=== PATIENT | female | born 1980 | race Caucasian/White ===

== ENCOUNTER 2017-05-11 15:59 | Emergency (ER) | payer MEDICAID ==
--- NOTE | 2017-05-11 17:13 | ED Physician Chart ---
Chief Complaint/HPI - Patient Information Date Seen:: 05/11/17 Time Seen:: 16:10 Chief Complaint:: VERIFY TRACH PLACEMENT History of Present Illness:: THIS IS A 36 YO FEMALE TRACH PATIENT SENT TO THIS ER FOR VERIFICATION OF THE TRACH PLACEMENT. THE TRACH WAS OUT AND PLACED BACK IN BY THE STAFF AT THE [facility]. THEIR POLICY IS TO VERIFY IT AFTER IT IS REPLACED. Allergies:: Allergies Allergy/AdvReac Type Severity Reaction Status Date / Time No Known Allergies Allergy Verified 05/11/17 16:07 Vitals:: Vital Signs - 8 hr 05/11/17 16:07 Temp 97.0 F HR 54 RR 12 BP 110/64 O2 Sat % 98 Historian:: EMS, Medical Records Review:: Nurse's Note Reviewed Review of Systems - Review of Systems General/Constitutional: No fever, No chills, No weight loss, No weakness, No diaphoresis, No edema, No loss of appetite, Other (THIS PATIENT CANNOT GIVE A REVIEW OF SYSTEMS.) Skin: No skin lesions, No rash, No bruising Head: No headache, No light-headedness Eyes: No loss of vision, No pain, No diplopia ENT: No earache, No nasal drainage, No sore throat, No tinnitus Neck: No neck pain, No swelling, No thyromegaly, No stiffness, No mass noted Cardio Vascular: No chest pain, No palpitations, No PND, No orthopnea, No edema Pulmonary: No SOB, No cough, No sputum, No wheezing GI: No nausea, No vomiting, No diarrhea, No pain, No melena, No hematochezia, No constipation, No hematemesis G/U: No dysuria, No frequency, No hematuria Musculoskeletal: No bone or joint pain, No back pain, No muscle pain Endocrine: No polyuria, No polydipsia Psychiatric: No prior psych history, No depression, No anxiety, No suicidal ideation Hematopoietic: No bruising, No lymphadenopathy Allergic/Immuno: No urticaria, No angioedema Neurological: No syncope, No focal symptoms, No weakness, No paresthesia, No headache, No seizure, No dizziness, No confusion, No vertigo Past Medical History - Past Medical History Obtainable: Yes Past Medical History: CAD, CHF, Seizures, Arthritis, Dementia, Other (CP FROM ) Family History: None Social History: Non Smoker, No Alcohol, No Drug Use, Care Facility Surgical History: other (TRACH PLACEMENT) Family Medical History - Family Member Niece History Unknown: Yes Physical Exam - Physical Examination General/Constitutional: Awake, Well-developed, well-nourished, Alert, No distress, GCS 15, Non-toxic appearing, Ambulatory Head: Atraumatic Eyes: Lids, conjuctiva normal, PERRL, EOMI Skin: Nl inspection, No rash, No skin lesions, No ecchymosis, Well hydrated, No lymphadenopathy ENMT: External ears, nose nl, Nasal exam nl, Lips, teeth, gums nl Neck: Nontender, Full ROM w/o pain, No JVD, No nuchal rigidity, No bruit, No mass, No stridor Other Neck comments:: TRACH NOTED AND IN PLACE FUNCTIONING NORMAL Respiratory: Nl effort/Exclusion, Clear to Auscultation, No Wheeze/Rhonchi/Rales Cardio Vascular: RRR, No murmur, gallop, rubs, NL S1 S2 GI: No tenderness/rebounding/guarding, No organomegaly, No hernia, Normal BS's, Nondistended, No mass/bruits, No McBurney tenderness : No CVA tenderness Extremities: No tenderness or effusion, Full ROM, normal strength in all extremities, No edema, Normal digits & nails Neuro/Psych: Alert/oriented, DTR's symmetric, Normal sensory exam, Normal motor strength, Judgement/insight normal, Mood normal, Normal gait, No focal deficits Misc: normal gait, Normal back, No paraspinal tenderness Labs/Radiology/EKG Results - Radiology Results Results: CHEST X-RAY = TRACH IN PLACE Assessment - Assessment General Assessment: TRACH PLACEMENT ED Septic Shock - . Is Septic Shock (SBP<90, OR Lactate>4 mmol\L) present?: No - <6hrs of presentation: Vital Signs: Vital Signs - 8 hr // 16:07 Temp 97.0 F HR 54 RR 12 BP 110/64 O2 Sat % 98 Reassessment (Disposition) - Diagnosis Diagnosis:: TRACH REPLACEMENT - Aftercare/Follow up Instructions Aftercare/Follow-Up Instructions:: Counseled pt regarding lab results/diagnosis & need follow up, Refer to Discharge Instructions, Counseled pt & family regarding lab results/diagnosis & need follow up - Patient Disposition Discharge/Transfer:: Detention Care - SNF Condition at Disposition:: Unchanged ED Discharge Plan - Patient Disposition Admit/Discharge/Transfer: Detention Care HOSP - SNF Condition at Disposition: Unchanged Instructions: Tracheostomy
--- NOTE | 2017-05-12 10:01 | Diagnostic Imaging Report ---
Exam: portable examination of the chest HISTORY endotracheal tube placement. Findings Portable examination of the chest at 1637 hours was reviewed no prior studies available comparison. Tracheostomy tube midline The spinal structures midline the heart is not enlarged costophrenic angles are clear. Bony thorax intact. IMPRESSION: no acute disease.
== END 2017-05-11 17:45 ==
LOC: ER 15:59
DX: Z76.89 Persons encountering health services in other specified circumstances (principal); I25.10 Atherosclerotic heart disease of native coronary artery without angina pectoris; I50.9 Heart failure, unspecified; Z93.0 Tracheostomy status
CPT/HCPCS: 71010-TC; Z7502